=== PATIENT | male | born 1960 | race Caucasian/White ===

== ENCOUNTER 2018-04-19 13:08 | Observation (INO) | payer OTHER ==
[2018-04-19] MEDS ORDERED: Nicotine Inhaler* 10 MG AMP INH PRN (13:25)
[2018-04-19] MEDS ORDERED: Mouth Piece, Nicotine* 1 EACH CARTRIDGE INH PRN (13:46)
--- NOTE | 2018-04-19 13:57 | ED ---
Psychiatric Complaint - HPI Summary HPI Summary: A 57 y/o male brought in by police presents to [facility] with a chief complaint of throat pain post suicide attempt on 04/19/18. The patient reportedly drank 4 ounces of cocoa bean cleaner after finding out that he got his [facility] time extended. He c/o sore throat, stating that it moreira. He also has white spots on his tongue. He rates his pain as a 4/10 in severity. According to the mcc report , the patient refused to drink water, and DAWIT Biggs called poison control who recommended transfer to the ED. Per police, the patient is here for medical clearance and will be taken to another psychiatric facility once cleared. The patient claims that he did wash his mouth out and drink. He reports taking Zoloft. He has attempted suicide before, claiming that he tried hiding in a closet and stabbing himself in the neck with a pen. He denies fever, chills, erythema (eyes), chest pain, shortness of breath, cough, abdominal pain, vomiting, nausea, dysuria, hematuria, myalgia, edema, rash and dizziness. - History Of Current Complaint Chief Complaint: EDThroatPain Time Seen by Provider: 04/19/18 13:25 Hx Obtained From: Patient, Other: - police Onset/Duration: Sudden Onset, Lasting Hours, Still Present Timing: Hours Severity Initially: Moderate Severity Currently: Moderate Character: Depressed Aggravating Factor(s): Other - positive: mcc time extended Alleviating Factor(s): Nothing Associated Signs And Symptoms: Positive: Negative Related History: Positive For: Prior Psychiatric Issues Has Suicidal: Reports: Thoughts, With A Plan, Demonstrates Gesture, Has Prior Attempt(s) Recent Stressor(s): mcc time extended - Allergies/Home Medications Allergies/Adverse Reactions: Allergies Allergy/AdvReac Type Severity Reaction Status Date / Time Penicillins Allergy Swelling Verified 04/19/18 13:18 Home Medications: Home Medications Aspirin EC TAB* [Ecotrin EC Low Dose 81 MG*] 81 mg PO DAILY 04/19/18 [History Confirmed 04/19/18] Losartan TAB* [Cozaar TAB*] 100 mg PO DAILY 04/19/18 [History Confirmed 04/19/18 ] Sertraline* [Zoloft*] 200 mg PO QAM 04/19/18 [History Confirmed 04/19/18] traZODone TAB* [Desyrel TAB*] 150 mg PO BEDTIME 04/19/18 [History Confirmed 10/28] PMH/Surg Hx/FS Hx/Imm Hx Opthamlomology History: Denies: Hx Legally Blind EENT History: Denies: Hx Deafness Psychiatric History: Reports: Hx Suicide Attempt Infectious Disease History: No Infectious Disease History: Denies: Traveled Outside the [place] in Last 30 Days - Family History Known Family History: Negative: Blood Disorder - Social History Alcohol Use: None Substance Use Type: Reports: None Smoking Status (MU): Heavy Every Day Tobacco Smoker Review of Systems Negative: Fever, Chills Negative: Erythema ENT: Other - positive: tongue white discoloration Positive: Sore Throat. Negative: Ear Ache Negative: Chest Pain Negative: Shortness Of Breath, Cough Negative: Abdominal Pain, Vomiting, Nausea Negative: dysuria, hematuria Negative: Myalgia, Edema Negative: Rash Neurological: Negative - dizziness Psychological: Other - positive: SI, suicide attempt Positive: Depressed All Other Systems Reviewed And Are Negative: Yes Physical Exam - Summary Physical Exam Summary: Constitutional: Well-developed, Well-nourished, Alert. (-) Distressed Skin: Warm, Dry HENT: Normocephalic; Atraumatic Eyes: Conjunctiva normal Neck: White discoloration of tongue. Musculoskeletal ROM normal neck. (-) JVD, ( -) Stridor, (-) Tracheal deviation Cardio: Rhythm regular, rate normal, Heart sounds normal; Intact distal pulses; The pedal pulses are 2+ and symmetric. Radial pulses are 2+ and symmetric. (-) Murmur Pulmonary/Chest wall: Effort normal. (-) Respiratory distress, (-) Wheezes, (-) Rales Abd: Soft, (-) epigastric tenderness, (-) Distension, (-) Guarding, (-) Rebound Musculoskeletal: (-) Edema Lymph: (-) Cervical adenopathy Neuro: Alert, Oriented x3 Psych: Mood and affect Normal Triage Information Reviewed: Yes Vital Signs On Initial Exam: Initial Vitals Temp Pulse Resp BP Pulse Ox 97.9 F 81 18 137/94 95 04/19/18 13:15 04/19/18 13:15 04/19/18 13:15 04/19/18 13:15 04/19/18 13:15 Vital Signs Reviewed: Yes Diagnostics - Vital Signs Vital Signs Temp Pulse Resp BP Pulse Ox 04/19/18 13:15 97.9 F 81 18 137/94 95 - Laboratory Result Diagrams: 04/19/18 13:34 04/19/18 12:44 Lab Statement: Any lab studies that have been ordered have been reviewed, and results considered in the medical decision making process. - EKG 14:19 Cardiac Rate: NL - 60 bpm EKG Rhythm: Sinus Rhythm Summary of EKG Findings: EKG at 14:19 showed Normal sinus rhythm at 60 bpm, no STEMI. Re-Evaluation - Re-Evaluation First Eval Re-Evaluation Time: 19:42 Change: Unchanged Comment: Informed police officers and patient of plan for admission. Course/Dx - Course Course Of Treatment: A 57 y/o male brought in by police presents to [facility] with a chief complaint of throat pain post suicide attempt on 04/19/18. The patient reportedly drank 4 ounces of cocoa bean cleaner after finding out that he got his mcc time extended. He c/o sore throat, stating that it moreira. He also has white spots on his tongue. He rates his pain as a 4/10 in severity. According to the mcc report, the patient refused to drink water, and DAWIT Biggs called poison control who recommended transfer to the ED. Per police, the patient is here for medical clearance and will be taken to another psychiatric facility once cleared. The patient claims that he did wash his mouth out and drink. He reports taking Zoloft. He has attempted suicide before, claiming that he tried hiding in a closet and stabbing himself in the neck with a pen. He denies fever , chills, erythema (eyes), chest pain, shortness of breath, cough, abdominal pain, vomiting, nausea, dysuria, hematuria, myalgia, edema, rash and dizziness.The physical exam revealed white discoloration of the tongue. EKG at :19 showed Normal sinus rhythm at 60 bpm, no STEMI. In the ED course the patient was given fentanyl and versed. Discussed case with Dr. Valdez, gastro, after she examined the patient, who recommended admission with soft diet and PPI. She found esophageal gastric moreira on endoscopy. Case discussed with Dr. Way, hospitalist, who accepted the patient for admission. The patient is agreeable with this plan. - Differential Dx/Clinical Impression Provider Diagnosis: Ingestion of caustic substance, Esophageal burn, Gastric ulcer - Physician Notifications Discussed Care Of Patient With: Jessica Valdez Time Discussed With Above Provider: 15:07 Instructed by Provider To: MD Will See In ED - Critical Care Time Critical Care Time: 30-74 min - 35 MINUTES CRITICAL CARE TIME Discharge - Sign-Out/Discharge Documenting (check all that apply): Patient Departure - admit Patient Received Moderate/Deep Sedation with Procedure: No - Discharge Plan Condition: Improved Disposition: ADMITTED TO [facility] - Billing Disposition and Condition Condition: IMPROVED Disposition: Admitted to [facility] - Attestation Statements Document Initiated by Scribe: Yes Documenting Scribe: Mike Dover Provider For Whom Dariusibe is Documenting (Include Credential): Omega Simmons MD Scribe Attestation: IMike, scribed for Omega Simmons MD on 04/22/18 at 1011. Scribe Documentation Reviewed: Yes Provider Attestation: The documentation as recorded by the dariusibMike torres accurately reflects the service I personally performed and the decisions made by me, Omega Simmons MD Status of Scribe Document: Viewed Consult Consult: At 19:40 - Discussed case with Dr. Valdez, gastro, who recommended admission with soft diet and PPI. She found esophageal gastric moreira on endoscopy. At 19:55 - Discussed case with Dr. Way, hospitalist, who accepted the patient for admission.
[2018-04-19 14:15] LABS: ALT 10 U/L (7-52); AST 12 U/L (13-39); Albumin 4.4 g/dL (3.2-5.2); Albumin/Globulin Ratio 1.7 (1-3); Alkaline Phosphatase 84 U/L (34-104); Anion Gap 7 mmol/L (2-11); BUN/Creatinine Ratio 25.6 (8-20); Blood Urea Nitrogen 21 mg/dL (6-24); CO2 Carbon Dioxide 23 mmol/L (22-32); Calcium 9.7 mg/dL (8.6-10.3); Chloride 105 mmol/L (101-111); EGFR African American 116.4 (>60); EGFR Non-African American 96.2 (>60); Globulin 2.6 g/dL (2-4); Glucose 100 mg/dL (70-100); Potassium 4.4 mmol/L (3.5-5.0); Sodium 135 mmol/L (135-145)
[2018-04-19 14:31] LABS: Acetaminophen < 15 mcg/mL; Alcohol < 10 mg/dL (<10); Salicylate < 2.50 mg/dL (<30)
[2018-04-19 14:31] LABS: ABS Basophils 0 10^3/ul (0-0.2); ABS Eosinophils 0.1 10^3/ul (0-0.6); ABS Lymphocytes 1.9 10^3/ul (1.0-4.8); ABS Monocytes 0.5 10^3/ul (0-0.8); ABS Neutrophils 6.7 10^3/ul (1.5-7.7); ABS Nucleated RBC 0 10^3/ul; Eosinophil % 1.4 %; Hematocrit 41 % (42-52); Hemoglobin 13.9 g/dl (14.0-18.0); Lymphocyte % 20.6 %; Mean Corpuscular HGB Conc 34 g/dl (31-36); Mean Corpuscular Hemoglobin 30 pg (27-31); Mean Corpuscular Volume 90 fL (80-94); Mean Platelet Volume 8.8 fL (7.4-10.4); Nucleated Red Blood Cells % 0.1; Platelet Count 202 10^3/ul (150-450); Red Blood Count 4.56 10^6/ul (4.00-5.40); Red Cell Distribution Width 13 % (10.5-15); White Blood Count 9.3 10^3/ul (3.5-10.8)
[2018-04-19 14:39] LABS: TSH (Thyroid Stimulating Horm) 1.72 mcIU/mL (0.34-5.60)
[2018-04-19 16:09] LABS: Urine Appearance Clear; Urine Bilirubin Negative (Negative); Urine Blood Negative (Negative); Urine Color Straw; Urine Glucose Negative (Negative); Urine Ketones Negative (Negative); Urine Nitrite Negative (Negative); Urine Protein Negative (Negative); Urine Specific Gravity 1.008 (1.010-1.030); Urine Urobilinogen Negative (Negative)
[2018-04-19 16:31] LABS: Barbiturates Urine Screen None Detected (None Detect); Benzodiazepine Urine Screen None Detected (None Detect); Urine Cannabinoids Screen None Detected (None Detect)
[2018-04-19] MEDS ORDERED: Midazolam* 1 MG/ML 10 ML VIAL (10 MG) ONE (18:20)
[2018-04-19] MEDS ORDERED: fentaNYL* 50 MCG/ML 2 ML VIAL (100 MCG VIAL) ONE (18:20)
--- NOTE | 2018-04-19 18:38 | CONS ---
GASTROENTEROLOGY CONSULT REPORT: DATE OF CONSULT: 04/19/18 REQUESTING CONSULT: ER - Dr. Simmons. Patient was seen in the Emergency Department. REASON FOR CONSULT: Swallowed possible caustic agent. HISTORY OF PRESENT ILLNESS: Mr. Cat is a 57-year-old inmate with a history of depression, GERD, and hypertension, who is brought to the ED by police following ingestion of brasswind instrument repairer in a suicide attempt. Mr. Cat reportedly drank somewhere between 2 and 4 ounces of brasswind instrument repairer, Brasso in a reported suicide attempt. He complaints of a sore throat. Poison Control was contacted and recommend the patient be brought to the ER and have Gastroenterology consulted. On interview, Mr. Cat states that he is continuing to have a sore throat. Denies any nausea/vomiting or abdominal pain. No chest pain or shortness of breath. PAST MEDICAL HISTORY: 1. Depression with suicidal attempts. 2. GERD. 3. Hypertension. PAST SURGICAL HISTORY: None. SOCIAL HISTORY: He has been incarcerated since November 2017. Denies any alcohol or drug use. He is a smoker. FAMILY HISTORY: The patient is adopted. Does not know his family history. REVIEW OF SYSTEMS: Review of systems is negative except as above. PHYSICAL EXAM: Vitals: Afebrile, heart rate 81, blood pressure 137/94, pulse ox 95% on room air. General: Gentleman. NAD. Two police officers at bedside. HEENT: White discoloration on tongue. Mucous membranes otherwise moist. Cardiovascular: Regular rate and rhythm. Lungs: Breathing comfortably. Abdomen: Soft, nontender, nondistended. Neuro: A and O x3. Psych: Flat affect. Answers with short responses. DIAGNOSTIC STUDIES/LAB DATA: Labs reviewed. White count 9.3, hemoglobin 13.9. Imaging: None. IMPRESSION AND RECOMMENDATION: Mr. Gatito Cat is a 57-year-old prisoner with history of depression, who is brought to the ER after a suicide attempt in which he drank brasswind instrument repairer. Currently complaining of a sore throat. There are some white patches on his tongue of unclear acuity. MSDS reviewed for Brasso. There is at least a small portion of this grain cleaner composed of Ammonium hydroxide, which is an alkaline substance. There is no pH listed for the product. As he is currently mildly symptomatic, I think it is reasonable to perform an upper endoscopy to ensure there are no concerning findings related to the ingestion. 1. NPO. 2. Will perform EGD in ER this evening. Thank you very much for this consult. [id number]/[facility] #: [id number] LUCIEN
[2018-04-19] MEDS ORDERED: Pantoprazole TAB * 40 MG TAB PO ONE (19:47)
--- NOTE | 2018-04-19 21:05 | PRO ---
PROCEDURE REPORT: DATE OF PROCEDURE: 04/19/18 PROCEDURE: EGD. INDICATIONS: The patient drank telephone cleaner earlier today. He complains of throat soreness. MEDICATIONS GIVEN: 1. Midazolam 8 mg IV. 2. Fentanyl 75 mcg IV. DESCRIPTION OF PROCEDURE: Full disclosure of risks was reviewed with the patient as detailed on the consent form. The patient was placed in the left lateral decubitus position and monitored with continuous pulse oximetry, capnography, interval blood pressure monitoring, and direct observation. A bite -block was placed between the patient's gums. An adult gastroscope was then inserted into the patient's mouth and advanced through the distal esophagus. Findings and interventions are described below. FINDINGS: No significant edema noted in the oropharynx. Vocal cord visualized and photo documented. Scope was then advanced into the esophagus. There did appear to be some mild possible desquamation vs esophagitis seen along the proximal/mid portion of the esophagus. No erosions or ulcers noted. GE junction appeared slightly irregular. Scope was advanced into the stomach. Gastric mucosa was viewed in forward and retroflexed views. There was a pale edematous appearance to the gastric body mucosa. Along the lesser curvature in the proximal gastric body, there were several areas of slightly purplish mucosa without overt ulceration. The antrum was notable for at least 1 heaped-up erosion and streaky erythema. The scope was then advanced into the duodenum where there was scattered erythema seen throughout the duodenum. There were also some nodular areas of duodenal mucosa with overlying inflammation. Scope was then withdrawn from the patient. The patient tolerated the procedure well and was recovered in the Emergency Department. IMPRESSION: 1. Complete upper endoscopy to distal duodenum. 2. Some abnormal findings on this exam include: possible mild desquamation versus esophagitis in the esophagus, several abnormal areas of mucosa in the stomach, gastric edema, at least one antral erosion, and nodular erythema in the duodenum. Unclear to what extent these findings may be chronic or represent low-grade injury secondary to the ingestion. RECOMMENDATIONS: 1. As possibility for low-grade injury secondary to ingestion of caustic substance exists, I would recommend supportive care. Liquid diet can be started today. If the patient is doing well from a clinical standpoint, then he can be advanced to a regular diet in 24 to 48 hours. 2. PPI b.i.d. 3. Patient should have outpatient GI follow-up given abnormal findings, which may be at least partially related to underlying GERD. Additionally, the patient should also undergo endoscopy surveillance in the future as he may be at an increased risk for esophageal cancer given caustic ingestion history. Thank you very much for this consult. GI will remain available. [id number]/[facility] #: [id number] LUCIEN
[2018-04-19] MEDS: Pantoprazole IV* 40 MG IV SCH (21:07)
[2018-04-19] MEDS: traZODone TAB* 50 MG TAB PO SCH (21:24)
--- NOTE | 2018-04-19 21:48 | HP ---
CC: Dr. Mahendra Erwin; [facility] HISTORY AND PHYSICAL: DATE OF ADMISSION: 04/19/18 PRIMARY CARE PROVIDER: Dr. Mahendra Erwin CHIEF COMPLAINT: Suicide attempt by drinking aircraft cabin cleaner. HISTORY OF PRESENT ILLNESS: This is a 57-year-old male with past medical history of manic depression, who is currently in skilled nursing. He now comes to the emergency room after he attempted to have a suicide attempt with aircraft cabin cleaner. He swallowed 4 ounces of aircraft cabin cleaner after he had learned that his skilled nursing time got extended. He states that the skilled nursing is humiliating and people are abusive towards him. He does not have any plans of hurting other people. Shortly after swallowing 4 ounces of aircraft cabin cleaner, he was having some sore throat and having burning at the throat region and was having 4/10 burning sensation at the throat region. Subsequently, patient was brought to the hospital. He has had suicide attempts before as well. In the past, he had tried to hide in the closet, stabbing himself with a pen in order to end his life. In the emergency room, patient was seen and evaluated, Dr. Valdez, data programmer was consulted. Patient underwent an EGD and was found to have esophageal burn and gastric ulceration. Subsequently, the hospitalist service was called. At this point, patient does not have any symptoms, reports that his throat pain has dissipated. PAST MEDICAL HISTORY: Includes: 1. Hypertension. 2. GERD. 3. Manic depression with suicide attempts. PAST SURGICAL HISTORY: Pilonidal cyst removal. MEDICATIONS: Home medications include: 1. Trazodone 150 mg at bedtime. 2. Zoloft 200 mg at a.m. 3. Losartan 100 mg daily. 4. Aspirin 81 mg daily. 5. Omeprazole 40 mg daily. ALLERGIES: He is allergic to penicillin. FAMILY HISTORY: Patient does not know his real family and is adopted. SOCIAL HISTORY: Patient is currently in skilled nursing, has been incarcerated since November of 2017, he recently learned that his skilled nursing time has been extended. He reports that he has not had any alcohol in quite some time, he is a former smoker. REVIEW OF SYSTEMS: Patient does not have any chest pain, no shortness of breath , no palpitations, no fevers, no chills, he did have sore throat, however, that has not resolved, no changes in hearing or vision. No abdominal pain, no nausea , no vomiting, no dysuria, no hematuria, no rashes, or lesions, does not have any dizziness, does not have any lightheadedness. He does have positive for suicide attempts, suicidal ideation, as well depression. He does not have any hesitancy upon urination, no joint pain or backaches. PHYSICAL EXAMINATION GENERAL: This is a well-developed, well-nourished, obese male, lying in an ER stretcher, in no acute distress. VITAL SIGNS: Blood pressure 123/70, heart rate of 60, respiratory rate of 17, saturating about 97% on room air, temperature of 99.1 Fahrenheit. HEENT: Pupils are equal, round, and reactive to light. Atraumatic, normocephalic. Oral mucosa is moist, there is some white spot on his tongue. There is mild oropharyngeal erythema noted. There is no cervical lymphadenopathy. Tympanic membranes are visualized clear, pearly joy. LUNGS: Clear to auscultation bilaterally. There are no wheezing, rales, or rhonchi. HEART: There is no chest wall tenderness, regular rate and rhythm, no murmurs. ABDOMEN: Bowel sounds are normoactive in all 4 quadrants. Abdomen is soft, nontender, nondistended. EXTREMITIES: There is no lower extremity edema, no calf tenderness. NEUROLOGICAL: Alert and oriented x3, there are no focal neurological deficits. Patient is depressed, with somewhat flat affect, he is having suicidal ideation. However, reports no thoughts or plans of hurting anybody else. DIAGNOSTIC STUDIES/LAB DATA: White count of 9.3, hemoglobin of 13.9, hematocrit of 41, platelets of 202, BUN of 21, creatinine of 0.82, AST of 12, ALT of 10, TSH of 1.72. He is negative for salicylate, Tylenol level is less than 15, serum alcohol is less than 10. Urine tox is negative. Urinalysis shows specific gravity of 1.008, otherwise, is negative for nitrites, leuk esterase, and glucose. IMPRESSION AND PLAN: 1. Gastric ulceration as well as esophageal burn: We will start the patient on a clear liquid diet, start patient on IV pantoprazole. Advance diet as tolerated. 2. Suicidal attempt: Patient is incarcerated and recently found out that his skilled nursing time being extended, at this point once the patient is medically cleared , he will be transferred to skilled nursing psychiatric facility. Police officers are present in the room, who verified this information for me. Place on suicide precautions. 3. Manic depression with suicidal attempt: Continue home medications. 4. Hypertension: Continue losartan. At this point, I will hold patient's aspirin in light of esophageal burning as well as gastric ulceration. 5. DVT prophylaxis: Patient is at low risk, ambulate ad cecilia. 6. Clear liquid diet, if patient is able to tolerate this, I will slowly advance it to a soft diet. [id number]/[facility] #: [id number] LUCIEN
[2018-04-20] MEDS: Losartan TAB* 25 MG PO SCH (09:08)
[2018-04-20] MEDS: Sertraline* 100 MG TAB PO SCH (09:08)
[2018-04-20] MEDS: Pantoprazole IV* 40 MG IV SCH ×2 (09:09→20:13)
--- NOTE | 2018-04-20 14:00 | PN ---
Subjective Date of Service: 04/20/18 Interval History: Mr. Cat is feeling better today. He continues to have 2/10 throat pain, but he feels this is improved when eating/drinking. Denies CP, SOB, N/V. He is fearful to return to detention and is very discouraged about having another 6 weeks added to his sentence. He denies suicidal thoughts at this point. Feels as though he is not treated appropriately at detention and is forced to do activities that he feels he should not have to do due to his health. Family History: Unchanged from Admission Social History: Unchanged from Admission Past Medical History: Unchanged from Admission Objective Active Medications: Losartan Potassium (Cozaar Tab*) 100 mg PO DAILY JOSE Nicotine (Nicotine Inhaler*) 10 mg INH Q2H PRN CRAVING Pantoprazole Sodium (Protonix Iv*) 40 mg IV BID JOSE Sertraline HCl (Zoloft*) 200 mg PO QAM JOSE Trazodone HCl (Desyrel Tab*) 150 mg PO BEDTIME JOSE Vital Signs - 8 hr 04/20/18 04/20/18 04/20/18 07:50 09:14 11:46 Temperature 97.9 F 98.4 F Pulse Rate 55 60 Respiratory 16 16 18 Rate Blood Pressure 119/68 107/66 (mmHg) O2 Sat by Pulse 93 97 Oximetry Oxygen Devices in Use Now: None Appearance: Middle-aged male laying in bed in NAD Eyes: No Scleral Icterus Ears/Nose/Mouth/Throat: Mucous Membranes Moist Neck: NL Appearance and Movements; NL JVP, Trachea Midline Respiratory: Symmetrical Chest Expansion and Respiratory Effort, Clear to Auscultation Cardiovascular: NL Sounds; No Murmurs; No JVD, RRR Abdominal: - - Soft, slightly tender to epigastric region Extremities: No Edema Skin: No Rash or Ulcers Neurological: Alert and Oriented x 3 Lines/Tubes/Other Access: Clean, Dry and Intact Peripheral IV Nutrition: Taking PO's Result Diagrams: 04/19/18 13:34 04/19/18 12:44 Assess/Plan/Problems-Billing Assessment: Mr. Cat is a 57 yo M with PMH of HTN, GERD, depression, and suicide attempts who is incarcerated at [place]; who presented to the ED with c/o throat pain after ingesting hall cleaner in a suicide attempt. - Patient Problems (1) Ingestion of caustic substance Code(s): T54.91XA - TOXIC EFFECT OF UNSP CORROSIVE SUBSTANCE, ACCIDENTAL, INIT Comment: - Ingested 4oz ammonium hydroxide as means of attempted suicide - Appreciate GI consult; EGD done on admission - EGD showed areas of abnormal mucosa in the esophagus, stomach, and duodenum; will also need GI f/u in the future given his history - Clear liquids for now with plans to advance to regular 24-48hr after admission per GI; will order soft diet for breakfast tomorrow - Continue pantoprazole (2) Suicide attempt Comment: - At least one other attempt since incarceration - Appreciate Psych consult - Continue 1:1 until cleared by Psych (3) GERD (gastroesophageal reflux disease) Code(s): K21.9 - GASTRO-ESOPHAGEAL REFLUX DISEASE WITHOUT ESOPHAGITIS Comment : - Continue pantoprazole (4) Hypertension Code(s): I10 - ESSENTIAL (PRIMARY) HYPERTENSION Comment: - Normotensive, SBP 100-110s - Continue losartan (5) Manic depression Comment: - Continue sertraline, trazodone (6) DVT prophylaxis Comment: - SCDs (7) Full code status Code(s): Z78.9 - OTHER SPECIFIED HEALTH STATUS Comment: Status and Disposition: Observation. Anticipate d/c back to [place] when tolerating regular diet. Attending: Shaquille Fraire
[2018-04-20] MEDS: traZODone TAB* 50 MG TAB PO SCH (20:13)
[2018-04-21] MEDS: Losartan TAB* 25 MG PO SCH (08:28)
[2018-04-21] MEDS: Pantoprazole IV* 40 MG IV SCH (08:28)
[2018-04-21] MEDS: Sertraline* 100 MG TAB PO SCH (08:28)
[2018-04-21 11:29] VITALS: BP 105/56
--- NOTE | 2018-04-21 14:50 | CONSULT ---
Identification - Patient Identification Reason for Psychiatric Consultation: Suicidal Ideation -: Patient is a 57 year old, M admitted on 04/19/18. - MHU Identification Employment Status: Prisoner Hx Psychiatric Hospitalization: Yes Arrived to Hospital Via: Law Enforcement History - Objective HPI: This 57 y/o prisoner from [facility] currently admitted to due to intentional OD on ceiling cleaner. He has been doing fine medically since. Today during assessment he reports that he is no more suicidal and would like to go back to the detention to complete his extended sentence. He reports of a long h/o mental illness an diagnosis of Bipolar d/o. He got upset with the news of his detention time extension and impulsively took the OD. He regrets his behavior and is happy that he is alive. He has been compliant with his psychotropic meds and his symptoms appear to in good control. He denies hallucinations, delusions SI or HI. Exam Appearance: Healthy Appearing Hygiene: Normal Grooming: Disheveled Psychomotor Activities: Normal Exhibits Abnormal Movement: No Attitude and Relatedness: Appropriate Eye Contact: Good - Speech Quality: Unpressured Latencies: Normal Quantity: Appropriate Patient's Decription of Mood: "Good" Observed Affect: Non-labile Affect Consistent with: Euthymia Patient's Thought Process: Coherent, Goal Directed Thought Content: No Passive Wish, No Suicidal Planning, No Homicidal Ideation, No Paranoid Ideation Experiencing Hallucinations: No, Sensorium is Clear Type of Hallucinations: Visual: No, Auditory: No, Command: No Level of Consciousness: Alert Orientation: Yes Intact, Yes Orientated to Time, Yes Orientated to Place, Yes Orientated to Person Impulse Control: Tenuous Insight and Judgement: Fair Impression - Impression Clinical Impression: This 57 y/o WM with h/o Bipolar d/o OD'd impulsively in the context of a bad newwn in the detention resulting in admission on medical floor. He is asymptomatic psychiatrically and denies active SI, HI or psychosis. Merits Inpatient Hospitalization: No Plan - Treatment Plan Continued Medication Management: Continue Outpt Medication Medications: Current Medications Device (Nicotine Mouth Piece*) 1 each INH ONCE PRN PRN Reason: CRAVING Losartan Potassium (Cozaar Tab*) 100 mg PO DAILY [facility] Last Admin: 04/21/18 08:28 Dose: 100 mg Nicotine (Nicotine Inhaler*) 10 mg INH Q2H PRN PRN Reason: CRAVING Pantoprazole Sodium (Protonix Iv*) 40 mg IV BID [facility] Last Admin: 04/21/18 08:28 Dose: 40 mg Sertraline HCl (Zoloft*) 200 mg PO QAM [facility] Last Admin: 04/21/18 08:28 Dose: 200 mg Trazodone HCl (Desyrel Tab*) 150 mg PO BEDTIME [facility] Last Admin: 04/20/18 20:13 Dose: 150 mg - Discharge Plan Discharge Plan: Outpatient Follow Up Outpatient Program: Custodial Medical/ psychiatry.
--- NOTE | 2018-04-21 19:48 | DS ---
CC: Dr. Mahendra Erwin; [facility]; Dr. Valdez * DISCHARGE SUMMARY: DATE OF ADMISSION: 04/19/18 DATE OF DISCHARGE: 04/21/18 PRIMARY CARE PROVIDER: Dr. Mahendra Erwin. ATTENDING PHYSICIAN: Dr. Shaquille Fraire * (dictated by Adilia Borges NP). PRIMARY DIAGNOSES: 1. Ingestion of caustic substance. 2. Suicide attempt. SECONDARY DIAGNOSES: 1. Gastroesophageal reflux disease. 2. Hypertension. 3. Manic depression. STUDIES WHILE IN THE HOSPITAL: EKG on 04/19/18 shows normal sinus rhythm with a rate of 60, QTc 403. No ischemic changes. HISTORY OF PRESENT ILLNESS AND HOSPITAL COURSE: Mr. Cat is a 57-year-old male with past medical history of hypertension, GERD, manic depression and previous suicide attempt, who presented to the emergency room on 04/19/18 after a suicide attempt. Please see the history and physical by Dr. Way for a complete summary of the events leading up to this hospitalization. In short, the patient is currently incarcerated at [facility]. He recently had been given news that his senior living time had been extended another 6 weeks and was generally unhappy with his treatment in the senior living system. Because of this, he drank 4 ounces of furnace cleaner (ammonium hydroxide) in a suicide attempt. He subsequently reported a burning sensation in his throat and was brought to the emergency room. In the emergency room, he had labs, which were essentially unremarkable. He was seen by Dr. Valdez from Gastroenterology, who felt as though the patient would need an EGD. He was admitted by the hospitalist service. The patient had an EGD on the day of admission, which revealed possible mild desquamation versus esophagitis in the esophagus, several abnormal areas of mucosa in the stomach, gastric edema and at least 1 antral erosion and nodular erythema in the duodenum. It was somewhat unclear if any of these findings were chronic, though it was felt that it was likely that some of these findings were secondary to his recent ingestion. Dr. Valdez recommended starting the patient on a clear liquid diet and progressing to a regular diet in 24 to 48 hours if he was tolerating clear liquids well. She recommended increasing his PPI to b.i.d. and recommended that the patient should have outpatient GI followup as he may be at an increased risk for esophageal cancer given these findings and his caustic ingestion history. On 04/20/18, the patient did tolerate a clear liquid diet the entire day and reported an improvement in throat pain, rating it approximately 2/10. He felt as though the pain was improved when eating and drinking. The patient was advanced to a soft diet for breakfast on the day of discharge, which he tolerated well. He has no further complaints of throat pain, though does continue to report depression. Because of his suicide attempt, the patient did have a one-to-one monitor while here in the hospital. He was seen in consultation by Dr. Luna from Psychiatry, who does not feel as though the patient had any acute needs and did not require any medication changes at this point. The patient reports feeling well and is agreeable to returning back to senior living. Mr. Cat is stable for discharge today. Vital signs are as follows: Temp 98.0 , heart rate 65, respiratory rate 16, oxygen saturation 96% on room air, blood pressure 105/56. DISCHARGE MEDICATIONS: Changed medication: Omeprazole 40 mg p.o. b.i.d. ( previously was 40 mg daily). Continued medications: 1. Losartan 100 mg p.o. daily. 2. Sertraline 200 mg p.o. daily. 3. Trazodone 150 mg p.o. at bedtime. 4. Aspirin 81 mg p.o. daily. DISCHARGE PLAN: Mr. Cat will be discharged back to [place]. Activity will be as tolerated without any restrictions. Diet will be regular as tolerated based on the patient's comfort. Medications are noted above. The only medication change is that his PPI has been changed to b.i.d. rather than daily. This may need to be reassessed at a later time when the patient follows up with a piece presser as an outpatient. He will otherwise need to follow up with his provider at the senior living as needed. He should return to the emergency room or nearest hospital for any worsening of symptoms, shortness of breath, lightheadedness, dizziness, chest discomfort, high fevers, chills, night sweats , loss of consciousness, or any other worrisome signs or symptoms. This is a summarized report of a complex medical history and hospital stay. For further details, please see the entire medical record. TIME SPENT: Approximately 35 minutes was spent on this discharge. ADILIA BORGES, DOCUMENTATION CLERK [id number]/[facility] #: [id number] [facility] HOSPITALHugo
== END 2018-04-21 15:00 ==
LOC: ED 13:08 → EEVIPCON 20:03 → MED 20:03
PROVIDERS: ADMIT Internal Medicine; ATTEND Student in an Organized Health Care Education/Training Program
DX: T65.892A Toxic effect of other specified substances, intentional self-harm, initial encounter (principal); T14.91XA Suicide attempt, initial encounter; Y92.149 Unspecified place in prison as the place of occurrence of the external cause; R07.0 Pain in throat; Z88.0 Allergy status to penicillin; F17.210 Nicotine dependence, cigarettes, uncomplicated; K21.9 Gastro-esophageal reflux disease without esophagitis; I10 Essential (primary) hypertension; F33.9 Major depressive disorder, recurrent, unspecified; Z79.82 Long term (current) use of aspirin
CPT/HCPCS: 36415; 80053; 80307; 80320; 80329; 81003; 84443; 85025; 87641; 93005; 96374; 96375; 96376; 99156; 99157; 99285; A9270-GY; G0378; G0480; J2250; J3010